=== PATIENT | male | born 1990 | race African-American/Black ===

== ENCOUNTER 2017-03-15 05:04 | Emergency (ER) | payer BC, OTHER ==
[~2017-03-15] VITALS: Ht 182.9 cm; Wt 72.6 kg
[~2017-03-15 05:04] MED LIST: AUGMENTIN 875875 MG PO; HYDROCODON-ACE1 EAC7 PO
[2017-03-15] MEDS ORDERED: PENICILLIN V P500 MG PO (06:24)
[2017-03-15] MEDS ORDERED: NORCO 5-325 TA1 EACH PO (06:24)
== END 2017-03-15 08:19 | disposition home or self-care (01) ==
LOC: ER 05:04
DX: K08.89 Other specified disorders of teeth and supporting structures (principal); F17.210 Nicotine dependence, cigarettes, uncomplicated; F12.10 Cannabis abuse, uncomplicated; Z98.890 Other specified postprocedural states